=== PATIENT | male | born 1990 | race Caucasian/White ===

== ENCOUNTER 2018-02-19 00:30 | Emergency (ER) | payer OTHER ==
[2018-02-19 00:39] VITALS: BP 101/80
[2018-02-19] MEDS ORDERED: LIDOCAINE 1% INJ-PF (10 MG/ML) 30 ML SDV INJ ONE (02:15)
--- NOTE | 2018-02-19 02:44 | RADIOLOGY REPORT (SQ) ---
EXAM DESCRIPTION: XR WRIST 3 OR MORE VIEWS BILATERAL COMPLETED DATE/TME: 02/19/2018 02:14 CLINICAL HISTORY: 27 years, Male, r/o FB COMPARISON: None. FINDINGS: 3 views of the right wrist. No acute fracture or dislocation. Normal osseous mineralization. Laceration to the ventral soft tissues of the wrist. No radiopaque foreign body identified. IMPRESSION: No radiopaque foreign body identified. 2010 [employer]- All Rights Reserved
--- NOTE | 2018-02-19 02:59 | ER Document Report ---
ED Medical Screen (RME) - General Chief Complaint: Laceration Stated Complaint: WRIST PAIN Time Seen by Provider: 02/19/18 00:50 Mode of Arrival: Ambulatory Information source: Patient Notes: Patient is a 27-year-old male who presents to the emergency department with an approximate 3 cm laceration to his right wrist. Patient reports that [place] when he ran into a glass table, broke a table and sliced his wrist. There is no active bleeding noted on my assessment. Patient reports that his tetanus is up-to-date. Patient reports that this occurred at approximately 11:30 PM. Patient does have normal capillary refill, normal motor however his sensation is altered to the second and third digit as well as some numbness to the thumb. I have greeted and performed a rapid initial assessment of this patient. A comprehensive ED assessment and evaluation of the patient, analysis of test results and completion of the medical decision making process will be conducted by additional ED providers. Dictation of this chart was performed using voice recognition software; therefore, there may be some unintended grammatical errors. TRAVEL OUTSIDE OF THE [place] IN LAST 30 DAYS: No - Related Data Allergies/Adverse Reactions: No Known Allergies Allergy (Unverified 02/19/18 00:34) Past Medical History Renal/ Medical History: Denies: Hx Peritoneal Dialysis Physical Exam - Vital signs Vitals: Temp Pulse Resp BP Pulse Ox 97 F L 72 16 101/80 99 02/19/18 00:37 02/19/18 00:37 02/19/18 00:37 02/19/18 00:37 02/19/18 00:37 Course - Vital Signs Vital signs: Temp Pulse Resp BP Pulse Ox 97 F L 72 16 101/80 99 02/19/18 00:37 02/19/18 00:37 02/19/18 00:37 02/19/18 00:37 02/19/18 00:37
--- NOTE | 2018-02-19 04:53 | ER Document Report ---
ED General - General Mode of Arrival: Ambulatory Information source: Patient TRAVEL OUTSIDE OF THE [place] IN LAST 30 DAYS: No <LUCIA FITZGERALD - Last Filed: 02/19/18 04:53> <JALEN DEL RIO - Last Filed: 02/19/18 06:20> - General Chief Complaint: Laceration Stated Complaint: WRIST PAIN Time Seen by Provider: 02/19/18 00:50 Notes: Patient is a 27-year-old male presenting to the emergency department complaining of a laceration to his right wrist. Patient states he [place] when he ran into a glass table, broke a table and sliced his wrist around 23:30 last night. Patient reports that his tetanus is up-to-date. (LUCIA FITZGERALD) Patient fell onto a glass tabletop breaking glass and lacerating the right wrist. There are tendons exposed in the wound. There is numbness in the median nerve distribution. The patient was initially unwilling to allow the nurse practitioner to manage his injury. He was unwilling to allow me to evaluate the wound prior to him personally looking at the x-rays that were done. He was eventually willing to allow the wound to be cleaned, irrigated with normal saline, and explored to look for foreign bodies. He was not willing to allow the wound to be anesthetized to facilitate exploration. He wanted the wound Steri-Stripped and he would follow-up with a hand surgeon when he returned home. [place] sometime today. (JALEN DEL RIO) - Related Data Allergies/Adverse Reactions: No Known Allergies Allergy (Unverified 02/19/18 00:34) Past Medical History - General Information source: Patient - Social History Smoking Status: Never Smoker Family History: Reviewed & Not Pertinent Patient has suicidal ideation: No Patient has homicidal ideation: No <LUCIA FITZGERALD - Last Filed: 02/19/18 04:53> Review of Systems - Review of Systems Constitutional: No symptoms reported EENT: No symptoms reported Cardiovascular: No symptoms reported Respiratory: No symptoms reported Gastrointestinal: No symptoms reported Genitourinary: No symptoms reported Male Genitourinary: No symptoms reported Musculoskeletal: See HPI Skin: See HPI Hematologic/Lymphatic: No symptoms reported Neurological/Psychological: No symptoms reported -: Yes All other systems reviewed and negative <LUCIA FITZGERALD - Last Filed: 02/19/18 04:53> Physical Exam <LUCIA FITZGERALD - Last Filed: 02/19/18 04:53> <QUANGJALEN - Last Filed: 02/19/18 06:20> - Vital signs Vitals: Temp Pulse Resp BP Pulse Ox 97 F L 72 16 101/80 99 02/19/18 00:37 02/19/18 00:37 02/19/18 00:37 02/19/18 00:37 02/19/18 00:37 - Notes Notes: GENERAL: Alert, interacts well. No acute distress. HEAD: Normocephalic, atraumatic. EYES: Pupils equal, round, and reactive to light. Extraocular movements intact. ENT: Oral mucosa moist, tongue midline. NECK: Full range of motion. Supple. Trachea midline. LUNGS: No respiratory distress. EXTREMITIES: Moves all 4 extremities spontaneously. No edema, radial and dorsalis pedis pulses 2/4 bilaterally. No cyanosis. NEUROLOGICAL: Alert and oriented x3. Normal speech. PSYCH: Agitated. SKIN: Warm, dry, normal turgor. No rashes or lesions noted. (LUCIA FITZGERALD) The right wrist has a 2 cm jagged laceration at the medial aspect going towards the ulnar side. Flexion at all the joints of the hand appeared to be intact. There is decreased sensation in the median nerve distribution. On initial exam the patient would not allow examination of the wound until he had the opportunity to look at his x-rays to read them himself. (JALEN DEL RIO) Course <LUCIA FITZGERALD - Last Filed: 02/19/18 04:53> - Diagnostic Test Radiology reviewed: Image reviewed, Reports reviewed - X-ray does not show foreign body or bony injury. There is the appearance of disruption of the skin in the region that the laceration occurred. <JALEN DEL RIO - Last Filed: 02/19/18 06:20> - Re-evaluation Re-evalutation: 02/19/18 05:58 The right wrist wound was Steri-Stripped by the PCT and bandaged. Then a sugar tongs type splint was applied placing the right wrist in flexion. Then a sling was applied to the right arm for support and comfort. I did reevaluate the patient and found that the numbness to his fingers was unchanged from the initial evaluation. Capillary refill remained normal to the fingertips. The splint fit well and kept the wrist in a fixed flexion position. PROCEDURE: As per the patient's demands and my suggestions that he was agreeable to, the management of his wound was conducted as follows: The skin around the right wrist laceration was cleaned with Shur-Clens. The skin of the wound was elevated and the wound cavity was copiously irrigated with 30 mL's of normal saline. Limited exploration did not reveal any foreign body. There did appear to be tendon injury in the region of the palmaris longus and just to the ulnar side of the palmaris longus. The wound did appear to go deep toward the ulnar direction. This would be consistent with the physical findings of median nerve injury and active flexion at all of the joints. (JALEN DEL RIO) - Vital Signs Vital signs: Temp Pulse Resp BP Pulse Ox 97 F L 72 16 101/80 99 02/19/18 00:37 02/19/18 00:37 02/19/18 00:37 02/19/18 00:37 02/19/18 00:37 Discharge <LUCIA FITZGERALD - Last Filed: 02/19/18 04:53> <JALEN DEL RIO - Last Filed: 02/19/18 06:20> - Discharge Clinical Impression: Laceration of right wrist with tendon involvement Qualifiers: Encounter type: initial encounter Qualified Code(s): S61.511A - Laceration without foreign body of right wrist, initial encounter Median nerve injury Qualifiers: Encounter type: initial encounter Location of peripheral nerve injury: wrist Laterality: right Qualified Code(s): S64.11XA - Injury of median nerve at wrist and hand level of right arm, initial encounter Condition: Stable Disposition: HOME, SELF-CARE Additional Instructions: I suspect you had a glass shard go into the wrist causing injury to the flexor tendons and the median nerve. According to your instructions and requests, the wound was cleaned, irrigated, explored and then Steri-Stripped closed. The wrist was splinted in flexion to prevent further injury to the median nerve and to prevent retraction of any injured tendons. You should follow-up with a hand surgeon in the next 2-3 days for reevaluation and discussion about surgical repair of your injury. You will be prescribed antibiotics and medication for pain, as injuries like this typically become quite painful by the second day. RETURN TO THE EMERGENCY ROOM IF ANY NEW OR WORSENING SYMPTOMS. Prescriptions: Cephalexin Monohydrate [Keflex 500 mg Capsule] 500 mg PO QID #20 capsule Hydrocodone/Acetaminophen [Pritchett 5-325 mg Tablet] 1 tab PO Q4 PRN #15 tablet PRN Reason: Scribe Attestation: 02/19/18 05:15 I personally performed the services described in the documentation, reviewed and edited the documentation which was dictated to the scribe in my presence, and it accurately records my words and actions. (JALEN DEL RIO) Aidan[facility] Documentation - Scribe Written by Tino:: Tino Welch, 02/19/2018 04:56 acting as scribe for :: Quang <LUCIA FITZGERALD - Last Filed: 02/19/18 04:53>
[2018-02-19] MEDS ORDERED: CEPHALEXIN 500 MG CAPSULE PO ONE (05:16)
== END 2018-02-19 06:00 | disposition home or self-care (01) ==
LOC: ER 00:30
PROC: 2W3CX1Z Immobilization of Right Lower Arm using Splint (ICD-10-PCS; principal; 2018-02-19)
DX: S61.511A Laceration without foreign body of right wrist, initial encounter (principal); S64.11XA Injury of median nerve at wrist and hand level of right arm, initial encounter; W25.XXXA Contact with sharp glass, initial encounter; Y92.009 Unspecified place in unspecified non-institutional (private) residence as the place of occurrence of the external cause
CPT/HCPCS: 99283; 73110; 29125; J3490